=== PATIENT | female | born 1945 | race Caucasian/White ===

== ENCOUNTER → 2016-06-10 | Outpatient (REF) | payer MEDICARE | LOC: M SFHCWAGY 13:39 | PROVIDERS: ATTEND Nurse Practitioner Women's Health | DX: Z12.4 Encounter for screening for malignant neoplasm of cervix (principal); Z12.12 Encounter for screening for malignant neoplasm of rectum | CPT/HCPCS: 82270; G0101; G0123 ==

== ENCOUNTER → 2017-06-16 | Outpatient (REF) | payer MEDICARE | LOC: M SFHCWAGY 13:44 | DX: Z12.72 Encounter for screening for malignant neoplasm of vagina (principal); R87.615 Unsatisfactory cytologic smear of cervix; Z12.12 Encounter for screening for malignant neoplasm of rectum | CPT/HCPCS: G0123 ==

== ENCOUNTER → 2023-11-29 | Outpatient (CLI) | payer MEDICARE ==
[~2023-11-29] MED LIST: ATOR40TA75 PO; BAYE81TA10 PO; CALC-176 PO; CHEL100T4 PO; CIDA500T2 PO; HYDR-3363 PO; LOSA100T8 PO; METF500T13 PO; METO1TAB7 PO; OMEP-173 PO; PRES10CA2 PO; PROBCAP14 PO; SUPECAP7 PO; THERTAB52 PO; TRAZ-252 PO; VENL75CA47 PO; VITA500C24 PO
== END ==
LOC: M PLARAD 13:07
PROVIDERS: ATTEND Internal Medicine Pulmonary Disease
DX: R91.8 Other nonspecific abnormal finding of lung field (principal)
CPT/HCPCS: 78815; A9552

== ENCOUNTER → 2023-12-01 | Outpatient (CLI) | payer MEDICARE ==
[~2023-12-01] MED LIST changes: +CYCL1DRO10; +TRAM50TA2 PO
== END ==
LOC: M ONCR 10:13
PROVIDERS: ATTEND General Practice
DX: C79.51 Secondary malignant neoplasm of bone (principal); C78.00 Secondary malignant neoplasm of unspecified lung; C79.89 Secondary malignant neoplasm of other specified sites; R07.89 Other chest pain; Z87.891 Personal history of nicotine dependence; Z85.3 Personal history of malignant neoplasm of breast; Z71.2 Person consulting for explanation of examination or test findings; Z79.82 Long term (current) use of aspirin; Z79.84 Long term (current) use of oral hypoglycemic drugs; Z79.899 Other long term (current) drug therapy; Z80.1 Family history of malignant neoplasm of trachea, bronchus and lung; Z80.3 Family history of malignant neoplasm of breast; Z80.8 Family history of malignant neoplasm of other organs or systems; Z88.0 Allergy status to penicillin; Z88.1 Allergy status to other antibiotic agents; Z88.2 Allergy status to sulfonamides; Z90.12 Acquired absence of left breast and nipple; Z90.710 Acquired absence of both cervix and uterus; Z91.048 Other nonmedicinal substance allergy status; Z92.21 Personal history of antineoplastic chemotherapy; Z92.3 Personal history of irradiation

== ENCOUNTER → 2023-12-15 | Outpatient (RCR) | payer MEDICARE ==
[2023-12-08 14:57] VITALS: BP 144/80; O2SAT 98
[2023-12-08 15:10] VITALS: BP 148/88; O2SAT 96
== END ==
LOC: M ONCR 12-08 13:21
PROVIDERS: ATTEND General Practice
DX: Z51.0 Encounter for antineoplastic radiation therapy (principal); Z79.51 Long term (current) use of inhaled steroids

== ENCOUNTER 2023-12-29 12:26 | Outpatient (RCR) | payer MEDICARE ==
[2023-12-08 15:10] VITALS: BP 148/88; O2SAT 96
[2024-01-10] MEDS ORDERED: OXYC-517 PO (12:24)
[2024-01-14] MEDS ORDERED: OLAN2.5T25 PO (13:37)
[2024-01-14] MEDS ORDERED: OXYC-517 PO (13:38)
== END 2024-01-15 ==
LOC: M ONCR 12:26
PROVIDERS: ATTEND General Practice
DX: Z51.0 Encounter for antineoplastic radiation therapy (principal); C79.51 Secondary malignant neoplasm of bone

== ENCOUNTER → 2024-01-03 | Outpatient (CLI) | payer MEDICARE ==
[~2024-01-03] MED LIST changes: +LIDOCAINE 1% MDV 20ML VIAL As Ordered ONE
[2024-01-03 09:20] VITALS: TEMP 98
[2024-01-03 10:16] VITALS: BP 197/91; O2SAT 96
== END ==
LOC: M IRPRO 09:07
PROVIDERS: ATTEND Internal Medicine Hematology & Oncology
DX: C79.89 Secondary malignant neoplasm of other specified sites (principal); R22.42 Localized swelling, mass and lump, left lower limb; C50.919 Malignant neoplasm of unspecified site of unspecified female breast

== ENCOUNTER → 2024-01-14 | Outpatient (CLI) | payer MEDICARE ==
[~2024-01-14] MED LIST changes: +B-12100011 SL; +DEXA4TA PO; +FOLI1TAB11 PO; -LIDOCAINE 1% MDV 20ML VIAL As Ordered ONE; +OLAN2.5T25 PO; +ONDA-84 PO; +OXYC-517 PO
== END ==
LOC: M ONCR 14:00
PROVIDERS: ATTEND General Practice
DX: M79.605 Pain in left leg (principal); R22.42 Localized swelling, mass and lump, left lower limb

== ENCOUNTER 2024-01-26 13:22 | Outpatient (RCR) | payer MEDICARE ==
[2023-12-08 15:10] VITALS: BP 148/88; O2SAT 96
[2024-01-24 14:47] LABS: BASO # 0.1 10^3/uL (0.0-0.2); BASO % 0.6 % (0.0-1.0); EOS # 0.2 10^3/uL (0.0-0.5); HEMATOCRIT 35.2 % (36.0-47.0); HEMOGLOBIN 11.5 g/dl (12.0-15.5); LYMPH # 1.4 10^3/uL (1.5-5.0); LYMPH % 13.4 % (24.0-44.0); MEAN CORPUSCULAR HEMOGLOBIN 29.2 pg (27.0-33.0); MEAN CORPUSCULAR HGB CONC 32.7 g/dl (32.0-36.5); MEAN CORPUSCULAR VOLUME 89.3 fl (80.0-96.0); MONO # 1.1 10^3/uL (0.0-0.8); MONO % 10.6 % (2.0-8.0); NEUTROPHILS # 7.8 10^3/uL (1.5-8.5); NEUTROPHILS % 72.8 % (36.0-66.0); PLATELET COUNT, AUTOMATED 346 10^3/uL (150-450); RED BLOOD COUNT 3.94 10^6/uL (4.00-5.40); WHITE BLOOD COUNT 10.6 10^3/uL (4.0-10.0)
[2024-01-24 15:23] LABS: ALBUMIN 3.1 G/DL (3.2-5.2); BILIRUBIN,TOTAL 0.4 MG/DL (0.3-1.2); CALCIUM LEVEL 9.2 MG/DL (8.3-10.6); CREATININE FOR GFR 0.97 MG/DL (0.55-1.30); POTASSIUM SERUM 3.6 MMOL/L (3.5-5.1); TOTAL PROTEIN 6.2 G/DL (5.7-8.2)
[~2024-01-26 13:22] MED LIST changes: -B-12100011 SL; -DEXA4TA PO; -FOLI1TAB11 PO; -ONDA-84 PO
[2024-01-26] MEDS ORDERED: DEXA4TA PO (17:31)
[2024-01-26] MEDS ORDERED: FOLI1TAB11 PO (17:34)
[2024-01-26] MEDS ORDERED: B-12100011 SL (17:34)
[2024-01-26] MEDS ORDERED: ONDA-84 PO (17:36)
[2024-02-11] MEDS ORDERED: DEXA4TA PO (14:17)
== END 2024-02-14 ==
LOC: M ONCR 13:22
PROVIDERS: ATTEND General Practice
DX: Z51.0 Encounter for antineoplastic radiation therapy (principal); C79.51 Secondary malignant neoplasm of bone

== ENCOUNTER → 2024-02-16 | Outpatient (CLI) | payer MEDICARE ==
[~2024-02-16] VITALS: Ht 152.4 cm; Wt 61.0 kg
[~2024-02-16] MED LIST changes: +B-12100011 SL; +DEXA4TA PO; +FOLI1TAB11 PO; +LIDOCAINE 1% MDV 20ML VIAL As Ordered ONE; +MIDAZOLAM INJ 2MG/2ML VIAL As Ordered ONE; -OLAN2.5T25 PO; +OLAN2.5T53 PO; +ONDA-84 PO; +VANCOMYCIN 1000MG/20ML VIAL As Ordered ONE; +fentaNYL 100 MCG/2 ML INJECTION As Ordered ONE
[2024-02-16 09:14] VITALS: TEMP 98
[2024-02-16] MEDS: VANCOMYCIN HCL 1,000 MG, VIAL MATE ADAPTER 1 EACH in D5W 250 ML IV ONE (10:23)
[2024-02-16] MEDS: NS 1,000 ML IV SCH (10:23)
[2024-02-16 11:59] VITALS: BP 189/91; O2SAT 96
== END ==
LOC: M IRPRO 08:51
PROVIDERS: ATTEND Internal Medicine Hematology & Oncology
DX: C50.919 Malignant neoplasm of unspecified site of unspecified female breast (principal)
CPT/HCPCS: 36561; 99152; J1642; J2250; J3010; J3370

== ENCOUNTER → 2024-04-26 | Outpatient (CLI) | payer MEDICARE ==
[~2024-04-26] MED LIST changes: -LIDOCAINE 1% MDV 20ML VIAL As Ordered ONE; -MIDAZOLAM INJ 2MG/2ML VIAL As Ordered ONE; -VANCOMYCIN 1000MG/20ML VIAL As Ordered ONE; -fentaNYL 100 MCG/2 ML INJECTION As Ordered ONE
== END ==
LOC: M ONCR 11:32
PROVIDERS: ATTEND General Practice
DX: C79.51 Secondary malignant neoplasm of bone (principal); C34.12 Malignant neoplasm of upper lobe, left bronchus or lung; E46 Unspecified protein-calorie malnutrition; K59.09 Other constipation; Z85.3 Personal history of malignant neoplasm of breast; R29.6 Repeated falls; Z87.891 Personal history of nicotine dependence; Z90.12 Acquired absence of left breast and nipple; Z92.3 Personal history of irradiation; Z92.21 Personal history of antineoplastic chemotherapy; Z88.0 Allergy status to penicillin; Z88.1 Allergy status to other antibiotic agents; Z88.2 Allergy status to sulfonamides; Z79.891 Long term (current) use of opiate analgesic; Z79.899 Other long term (current) drug therapy; Z79.82 Long term (current) use of aspirin; Z79.84 Long term (current) use of oral hypoglycemic drugs

== ENCOUNTER → 2024-06-05 | Outpatient (CLI) | payer MEDICARE ==
[~2024-06-05] MED LIST changes: +MEGE40TA3 PO; +TRAM50TA2; +ZOLO50TA PO
== END ==
LOC: M PLARAD 13:51
PROVIDERS: ATTEND Nurse Practitioner Women's Health
DX: C49.3 Malignant neoplasm of connective and soft tissue of thorax (principal)

== ENCOUNTER → 2024-07-10 | Outpatient (CLI) | payer MEDICARE ==
[~2024-07-10] MED LIST changes: +PROHANCE 279.3MG/ML 5ML VIAL As Ordered ONE
== END ==
LOC: M RAD 08:19
PROVIDERS: ATTEND Nurse Practitioner Women's Health
DX: C34.90 Malignant neoplasm of unspecified part of unspecified bronchus or lung (principal)
CPT/HCPCS: 70553; A9576